=== PATIENT | male | born 1970 | race Caucasian/White ===

== ENCOUNTER 2024-11-01 18:42 | Emergency (ER) | payer MEDICAID, OTHER ==
[~2024-11-01] VITALS: Ht 180.3 cm; Wt 73.0 kg
[~2024-11-01 18:42] MED LIST: AMLO5TAB88 PO; ASPI-1160 PO; DIGO-34 PO; FURO-151 PO; FURO10VI3 PO
[2024-11-01 18:45] VITALS: BP 172/100; PULSE 98; RESP 18; O2SAT 99
[2024-11-01 21:35] VITALS: TEMP 97.5
[2024-11-01] MEDS: ACETAMINOPHEN 325MG TABLET PO ONE (21:35)
[2024-11-01] MEDS ORDERED: ACET-2708 MT (22:09)
== END 2024-11-01 22:50 | disposition home or self-care (01) ==
LOC: ER 18:42
DX: S60.212A Contusion of left wrist, initial encounter (principal); S60.211A Contusion of right wrist, initial encounter; I11.0 Hypertensive heart disease with heart failure; I50.9 Heart failure, unspecified; Z79.899 Other long term (current) drug therapy; Z88.0 Allergy status to penicillin; Z88.6 Allergy status to analgesic agent; X58.XXXA Exposure to other specified factors, initial encounter; Y93.89 Activity, other specified; Y92.89 Other specified places as the place of occurrence of the external cause; Y99.8 Other external cause status
CPT/HCPCS: 73060; 73110; 99284